=== PATIENT | female | born 1955 | race Caucasian/White ===

== ENCOUNTER 2018-07-26 11:05 | Emergency (ER) | payer MEDICARE, OTHER ==
[2018-07-26 11:25] VITALS: BP 162/85
--- NOTE | 2018-07-26 11:52 | UC ---
Complaint Female HPI - HPI Summary HPI Summary: Patient is 63 year old female who present today with urinary complaints for past 5 days. There is associated abdominal discomfort She reports urgency and dysuria but denies any hematuria. Denies any fever, chills, cough chest pain or shortness of breath . No diaphoresis. Denies any abdominal pain , nausea or vomiting , diarrhea or constipation. - History Of Current Complaint Chief Complaint: UCGU Stated Complaint: URINARY COMPLAINT Time Seen by Provider: 07/26/18 11:49 Hx Obtained From: Patient Hx Last Menstrual Period: na Pain Intensity: 5 - Allergies/Home Medications Allergies/Adverse Reactions: Allergies Allergy/AdvReac Type Severity Reaction Status Date / Time propoxyphene [From Darvon] Allergy Intermediate hivesw Verified 07/26/18 11:25 Home Medications: Home Medications Fluoxetine HCl [Prozac] 10 mg PO DAILY WITH MEAL 07/26/18 [History Confirmed ] Loratadine [Claritin] 10 mg PO DAILY WITH MEAL 07/26/18 [History Confirmed 07/26] Metoprolol Succinate [Metoprolol Succinate ER] 25 mg PO DAILY 07/26/18 [History Confirmed 07/26/18] Omeprazole 20 mg PO DAILY WITH MEAL 07/26/18 [History Confirmed 07/26/18] PMH/Surg Hx/FS Hx/Imm Hx - Additional Past Medical History Additional PMH: Chronic headache for which she is on Prozac Pernicious anemia Previously Healthy: Yes Other Endocrine History: negative Cardiovascular History: Hypertension Other Cardiovascular History: negative Other Respiratory History: negative GI/ History: Gastroesophageal Reflux Other GI/ History: negative Neurological History: Other - Chronic headaches Other Neurological History: negative Other Psychological History: negative Other Cancer History: negative - Surgical History Surgical History: Yes Surgery Procedure, Year, and Place: tri fracture left leg/ankle. left greater toe fusion - Social History Alcohol Use: None Substance Use Type: None Smoking Status (MU): Never Smoked Tobacco Review of Systems All Other Systems Reviewed And Are Negative: Yes Constitutional: Positive: Negative Skin: Positive: Negative Eyes: Positive: Negative ENT: Positive: Negative Respiratory: Positive: Negative Cardiovascular: Positive: Negative Gastrointestinal: Positive: Negative Genitourinary: Positive: Dysuria, Urgency Motor: Positive: Negative Neurovascular: Positive: Negative Musculoskeletal: Positive: Negative Neurological: Positive: Negative Psychological: Positive: Negative Is Patient Immunocompromised?: No Physical Exam - Summary Physical Exam Summary: Physical Exam: Const: Appears well. No signs of apparent distress present. Alert and oriented x 3. Musculo: Walks with a normal gait. Head/Face: Atraumatic, normocephalic on inspection. Eyes: EOMI and PERRLA in both eyes. Conjunctivae clear. No discharge noted ENT: Hearing normal, TM normal appearing bilaterally . Respiratory: Respirations are unlabored. Lungs clear to auscultation bilaterally, no wheezing , rhonchi or rales noted . CVS: Regular rate and Rhythm, S1S2 normal , no murmurs identified. Extremities: Peripheral circulation is grossly normal. Pulses 2+ Abdomen : Soft , mild suprapubic tenderness noted Skin: No lesions or rash located on the upper extremities or on the lower extremities. Neuro: Cranial nerves II to XII intact, motor and sensory intact. DTR Intact bilaterally. Mood is normal. Affect is normal. Triage Information Reviewed: Yes Vital Signs: Initial Vital Signs Temp 98.6 F 07/26/18 11:20 Pulse 66 07/26/18 11:20 Resp 18 07/26/18 11:20 BP 162/85 07/26/18 11:20 Pulse Ox 96 07/26/18 11:20 Vital Signs Reviewed: Yes Complaint Female Dx - Course Course Of Treatment: During the visit today, we obtained urinalysis which demonstrated 3+ leukoesterase, 2+ blood and 1+ protein . We discussed the findings and further plan to treat it for UTI . I will prescribe the medication to the pharmacy . Patient expressed understanding . - Differential Dx/Diagnosis Provider Diagnoses: Urinary tract infection. Cystitis Discharge - Sign-Out/Discharge Documenting (check all that apply): Patient Departure All imaging exams completed and their final reports reviewed: No Studies - Discharge Plan Condition: Stable Disposition: HOME Prescriptions: Nitrofurantoin Monohyd/M-Cryst [Macrobid 100 mg Capsule] 100 mg PO BID 5 Days # 10 cap Patient Education Materials: Urinary Tract Infection in Women (ED) Referrals: Isael Orozco MD [Primary Care Provider] - 1 Week Additional Instructions: Please start taking the medication as prescribed to the pharmacy . Follow up with your primary care doctor in 1 week. Patients blood pressure slightly high in Urgent care today , plan follow up with PCP for better control Return to Urgent care / ER if symptoms get worse. - Billing Disposition and Condition Condition: STABLE Disposition: Home
== END 2018-07-26 12:25 | disposition home or self-care (01) ==
LOC: UCEAST 11:05
DX: N30.90 Cystitis, unspecified without hematuria (principal); I10 Essential (primary) hypertension; K21.9 Gastro-esophageal reflux disease without esophagitis; Z88.8 Allergy status to other drugs, medicaments and biological substances; Z79.899 Other long term (current) drug therapy
CPT/HCPCS: 81003; 87077; 87086; 87186; 99202; G0463

== ENCOUNTER 2021-05-29 10:56 | Observation (INO) ==
[~2021-05-29 10:56] MED LIST: Buffered Lidocaine 1% SYRIN 1 ml INTRADERM ONE; Famotidine IV 10 MG/ML 2 ml VIAL (20 mg) IV ONE; Lactated Ringers 1000 ml BAG 1,000 ML IV SCH
[2021-05-29] MEDS ORDERED: ceFAZolin 2 GM in NS PREMIX 2 GM/100 ML BAG IVPB ONE (11:46)
[2021-05-29] MEDS ORDERED: Famotidine IV 10 MG/ML 2 ml VIAL (20 mg) ONE (11:46)
[2021-05-29] MEDS ORDERED: ROPIVACAINE 5 MG/ML 30 ML BTL (0.5%) ONE (12:25)
[2021-05-29] MEDS ORDERED: fentaNYL 100 mcg/2 ml 50 MCG/ML VIAL ONE ×2 (12:26→12:41)
[2021-05-29] MEDS ORDERED: Dexamethasone IV 4 MG/ML VIAL 1 ml VIAL ONE (12:26)
[2021-05-29] MEDS ORDERED: Midazolam 2 mg/2 ml VIAL 1 mg/ml 2 ml VIAL (2 mg) ONE ×2 (12:26→12:41)
[2021-05-29] MEDS ORDERED: Ondansetron 4 mg VIAL 2 MG/ML 2 ml VIAL IV PRN (13:12)
[2021-05-29] MEDS ORDERED: HYDROmorphone 1 MG/1 ML SYRINGE IV PRN (13:12)
[2021-05-29] MEDS ORDERED: fentaNYL 100 mcg/2 ml 50 MCG/ML VIAL IV PRN (13:12)
[2021-05-29] MEDS ORDERED: Naloxone 0.4 mg VIAL 0.4 mg/ml 1 ml VIAL IV PRN (13:12)
[2021-05-29] MEDS ORDERED: Metoclopramide 5 MG/ML VIAL (10 mg) IV PRN (13:12)
[2021-05-29] MEDS ORDERED: diPHENhydraMINE IV 50 MG/ML 1 ml VIAL (BENADRYL) IV PRN ×2 (13:12→16:15)
[2021-05-29] MEDS ORDERED: HYDROcodone/ACETAMIN 5/325 mg TAB PO PRN (13:12)
[2021-05-29] MEDS ORDERED: Ropivacaine 5 MG/ML 20 ML VIAL 0.5% (100 MG) ONE (14:37)
[2021-05-29] MEDS ORDERED: Propofol 10 MG/ML 20 ML BTL ONE (15:09)
[2021-05-29] MEDS ORDERED: Magnesium Hydroxide LIQ 30 ML UDC PO PRN (16:15)
[2021-05-29] MEDS ORDERED: diPHENhydraMINE 25 mg TAB PO PRN (16:15)
[2021-05-29] MEDS ORDERED: Lactulose 30 ml UDC PO PRN (16:15)
[2021-05-29] MEDS ORDERED: Prochlorperazine 5 mg/ml 2 ml VIAL (10 mg) IV PRN (16:26)
[2021-05-29] MEDS ORDERED: diPHENhydraMINE IV 50 MG/ML 1 ml VIAL (BENADRYL) ONE (17:06)
[2021-05-29] MEDS: Lactated Ringers 1000 ml BAG 1,000 ML IV SCH (18:31)
[2021-05-29] MEDS: Morphine 2 MG/ML SYRINGE IV PRN (20:49)
[2021-05-29] MEDS: Magnesium Hydroxide LIQ 30 ML UDC PO SCH (21:53)
[2021-05-29] MEDS: Morphine ER 15 mg TAB ** extended release PO SCH (23:10)
[2021-05-29] MEDS: ceFAZolin 1 GM ADVAN 1 GM in NS 0.9% 50 ML 50 ML IVPB SCH (23:18)
[2021-05-30] MEDS: Morphine 2 MG/ML SYRINGE IV PRN (01:42)
[2021-05-30] MEDS: Lactated Ringers 1000 ml BAG 1,000 ML IV SCH (05:17)
[2021-05-30] MEDS: ceFAZolin 1 GM ADVAN 1 GM in NS 0.9% 50 ML 50 ML IVPB SCH ×2 (06:09→13:50)
[2021-05-30 06:48] LABS: Hematocrit 32 % (35-47); Hemoglobin 10.8 g/dL (12.0-16.0); Mean Platelet Volume 7.6 fL (7.4-10.4); Platelet Count 228 10^3/uL (150-450)
[2021-05-30 07:06] LABS: Calcium 9.1 mg/dL (8.6-10.3); EGFR African American 68.3 (>60); EGFR Non-African American 56.4 (>60); Potassium 4.2 mmol/L (3.5-5.0)
[2021-05-30] MEDS: Morphine ER 15 mg TAB ** extended release PO SCH (07:11)
[2021-05-30] MEDS: Magnesium Hydroxide LIQ 30 ML UDC PO SCH (08:30)
[2021-05-30] MEDS ORDERED: CYANOCOBALAMIN 5000 MCG SL SCH (09:00)
[2021-05-30] MEDS ORDERED: Vitamin THERAPEUTIC TAB PO SCH (09:00)
[2021-05-30 11:23] VITALS: BP 130/68
== END 2021-05-30 05:55 | disposition home or self-care (01) ==
LOC: OR 10:56 → SSU 10:56
PROVIDERS: ADMIT Orthopaedic Surgery Adult Reconstructive Orthopaedic Surgery; ATTEND Orthopaedic Surgery Adult Reconstructive Orthopaedic Surgery